=== PATIENT | male | born 1965 | race Caucasian/White ===

== ENCOUNTER 2022-08-25 22:24 | Emergency (ER) | payer BC, SELFPAY ==
--- NOTE | ~2022-08-25 | XR_ITS ---
AP view of the pelvis and AP and lateral views of the left hip Clinical history: Pain Findings: No acute fracture or dislocation is seen. There is some flattening and chronic remodeling o f the left femoral head with suggestion of mildly shallow left acetabulum. Right hip joint space is u nremarkable bilateral SI joints are intact. Soft tissues are unremarkable. Impression: No acute reality evident. Suggestion of element of chronic left hip dysplasia, with chronic remodeling and flattening of the le ft femoral head and mildly shallow left acetabulum. Reviewed, dictated and finalized at location [facility]. GER [facility]UM[facility] Impression: No acute reality evident. Suggestion of element of chronic left hip dysplasia, with chronic remodeling an d flattening of the left femoral head and mildly shallow left acetabulum.
[2022-08-25 22:26] VITALS: BP 136/88; PULSE 70; RESP 16; TEMP 36.8; O2SAT 99
--- NOTE | 2022-08-26 01:09 | PC.NURSE ---
Pt came up to intake desk and stated he can not wait in ED lobby chair anymore and asked for results of imaging. This nurse stated she could not advise on the imaging and stated pt would have to wait for ED provider to advise. Pt stated he couldnt wait any longer.
== END 2022-08-26 01:09 | disposition left against medical advice (07) ==
PROVIDERS: Emergency Provider Emergency Medicine; PCP Family Medicine
DX: M25.552 Pain in left hip (principal); Z53.21 Procedure and treatment not carried out due to patient leaving prior to being seen by health care provider
CPT/HCPCS: 73502; 99199

== ENCOUNTER → 2022-09-08 13:28 | Outpatient (CLI) | payer BC, SELFPAY ==
--- NOTE | ~2022-09-08 | MR_ITS ---
MRI of the lumbar spine Clinical History: Back pain Technique: Axial T2-weighted images, and sagittal T1-weighted, T2-weighted, and T2 fat-sat images wer e acquired. Findings: There is no fracture or subluxation of the lumbar spine. Vertebral bodies maintain normal h eight and alignment. No bone marrow signal abnormality seen. At L1-L2, there is no disc bulge or herniation. No spinal canal stenosis or neural foraminal narrowin g. At L2-L3 and L3-L4, there is no disc bulge or herniation. Minimal facet joint degenerative changes ar e present. No spinal canal stenosis or neural foraminal narrowing at these levels. At L4-L5, there is minimal disc bulge with facet arthropathy present. No spinal canal stenosis or jose elias ral foraminal narrowing. At L5-S1, there is facet arthropathy. No disc bulge or herniation evident. No spinal canal stenosis o r neural foraminal narrowing. Paravertebral soft tissues are unremarkable. Impression: Minimal degenerative changes, as detailed above. Reviewed, dictated and finalized at location M. ETCAR MOTORMAN Impression: Minimal degenerative changes, as detailed above.
--- NOTE | ~2022-09-08 | MR_ITS ---
MRI of the left hip Clinical history: Pain Technique: Coronal T1-weighted, T2-weighted, and proton-density fat-sat images, and axial T1-weighted and proton-density fat-sat images were acquired through the pelvis. Coronal T2-weighted images and c oronal, axial, and sagittal proton-density fat-sat images were acquired through the left hip. Findings: There is no acute fracture, avascular necrosis, or transient osteoporosis of either hip. Th ere is marked flattening and remodeling of the left femoral head with mild marrow edema in the femora l head. There is prominent subchondral cystic change at the superolateral left acetabulum. There is d iffuse high-grade chondromalacia throughout the left hip joint with moderate to large left hip joint effusion present. Suggestion of mild dysplasia of the superior left acetabulum. Right hip joint is morphologically unremarkable. No right hip joint effusion present. Bilateral SI janette ints are unremarkable. No other bone marrow signal abnormality seen in the visualized pelvis or proxi mal femora. There is probable extensive degenerative labral tearing of the left acetabular labrum, especially at the anterior superior portion. Visualized musculature about the pelvis and left hip is unremarkable. No muscle atrophy or edema evid ent. Visualized tendons are intact. No soft tissue mass or other fluid collection identified. IMPRESSION: Prominent flattening and chronic remodeling of the left femoral head with mild shallowness of the lef t acetabulum. Findings suggest sequelae of chronic left hip dysplasia with secondary advanced osteoar thritic change. Moderate to large left hip joint effusion, likely reactive/secondary to degenerative change. No imagi ng evidence for infectious process, however if this is of clinical concern, then joint aspiration wou ld be indicated. Extensive left acetabular labral tearing, likely degenerative in nature. Reviewed, dictated and finalized at location M. UNT REPRESENTATIVE IMPRESSION: Prominent flattening and chronic remodeling of the left femoral head with mild shallowness of the left acetabulum. Findings suggest sequelae of chronic left h ip dysplasia with secondary advanced osteoarthritic change. Moderate to large left hip joint effusion, likely reactive/secondary to degener ative change. No imaging evidence for infectious process, however if this is of clinical concern, then joint aspiration would be indicated. Extensive left acetabular labral tearing, likely degenerative in nature.
== END ==
PROVIDERS: PCP Family Medicine
DX: M54.50 Low back pain, unspecified (principal); M25.552 Pain in left hip; M25.452 Effusion, left hip
CPT/HCPCS: 72148; 73721

== ENCOUNTER 2022-11-07 11:25 | Outpatient (CLI) | payer BC, SELFPAY ==
[2022-11-07 19:21] LABS: Basophils Absolute Auto 0.1 K/mm3 (0.0-0.1); Basophils Percent Auto 0.9 % (0.2-1.2); Eosinophils Absolute Auto 0.1 K/mm3 (0-0.3); Eosinophils Percent Auto 1.2 % (0-4.4); Hemoglobin 16.3 g/dL (14.0-18.0); Immature Granulocyte Absolute 0.01 K/mm3 (0.00-0.031); Immature Granulocyte Percent A 0.1 % (0-0.5); Lymphocytes Absolute Auto 1.32 K/mm3 (0.9-3.2); Lymphocytes Percent Auto 17.8 % (18.3-44.2); Mean Corpuscular Hemoglobin 32.3 pg (26-34); Mean Platelet Volume 9.3 fl (7.4-10.4); Monocytes Absolute Auto 0.7 K/mm3 (0.1-0.6); Neutrophils Absolute Auto 5.3 K/mm3 (1.3-6.7); Platelet Count Result 294 k/mm3 (150-375); Red Blood Count 5.05 M/mm3 (4.6-6.20); Red Cell Distribution Width 12.5 % (11.5-14.5); White Blood Count 7.4 K/mm3 (4.5-10.0)
[2022-11-07 19:49] LABS: Alanine Aminotransferase 29 U/L (6-50); Albumin Level 4.5 g/dL (3.5-5.1); Alkaline Phosphatase 61 U/L (38-126); Anion Gap 7 mmol/L (8-16); Aspartate Amino Transferase 30 U/L (17-59); Bilirubin,Total 0.6 mg/dL (0.2-1.3); Blood Urea Nitrogen 18 mg/dL (9-20); Calcium 9.6 mg/dL (8.4-10.2); Carbon Dioxide 27 mmol/L (22-30); Chloride 103 mmol/L (98-107); Estimated Glomerular Filt Rate > 60; Glucose 80 mg/dL (65-110); Potassium 4.5 mmol/L (3.4-5.0); Sodium 137 mmol/L (137-145)
== END 2022-11-07 11:26 | disposition home or self-care (01) ==
LOC: ANHGOSHLAB 11:26
PROVIDERS: PCP Family Medicine; Visit Provider Family Medicine
DX: R53.83 Other fatigue (principal); Z13.228 Encounter for screening for other metabolic disorders
CPT/HCPCS: 36415; 80053; 85025

== ENCOUNTER 2024-07-11 13:47 | Emergency (ER) | payer BC, SELFPAY ==
[2024-07-11 13:52] VITALS: BP 127/71; PULSE 71; RESP 16; TEMP 36.4; O2SAT 99
--- NOTE | 2024-07-11 14:31 | ED_ITS ---
HPI - URI/Sore Throat General Chief Complaint: Upper Respiratory Infection Stated Complaint: Sinus Time Seen by Provider: 07/11/24 14:31 Source: patient, RN notes reviewed and old records reviewed Mode of arrival: ambulatory Limitations: no limitations History of Present Illness HPI Narrative: 59-year-old male presents to the [facility] with complaints of cough, sinus congestion, tickle in his throat since early May. States that he took 2 leftover Augmentin tablets. Denies any fevers. Has taken [id number] products. Has a history of chronic sinus congestion, sinusitis. Denies any chest pain or shortness of breath. Related Data Home Medications Medication Instructions Recorded Confirmed finasteride 5 mg tablet 5 mg PO DAILY 01/25/20 07/11/24 rosuvastatin 10 mg tablet (Crestor) 10 mg PO DAILY 01/25/20 07/11/24 coenzyme Q10 100 mg tablet 100 mg PO DAILY 02/20/20 07/11/24 omega-3 fatty acids 1,000 mg 1,000 mg PO DAILY 02/20/20 07/11/24 capsule (Fish Oil Concentrate) ezetimibe 10 mg tablet (Zetia) 10 mg PO DAILY 11/18/21 07/11/24 Allergies Allergy/AdvReac Type Severity Reaction Status Date / Time No Known Allergies Allergy Verified 05/12/24 15:36 Review of Systems Review of Systems: All systems reviewed & are unremarkable except as noted in HPI and below Constitutional: Constitutional: Reports no additional constitutional complaints ENT: Reports as per HPI Cardiovascular: Cardiovascular: Reports no additional cardiovascular complaints, Denies chest pain and Denies dyspnea Respiratory: Respiratory: Reports no additional respiratory complaints, Denies chest congestion, Denies cough and Denies dyspnea Gastrointestinal: Gastrointestinal: Reports no additional gastrointestinal complaints, Denies abdominal pain, Denies nausea and Denies vomiting Musculoskeletal: Musculoskeletal: Reports no additional musculoskeletal complaints Integumentary/Breasts: Skin/Breast: Reports system reviewed and no additional complaints, except as docu PMFSH Past Medical History Medical History History of torn meniscus of right knee Surgical History Surgical History H/O hernia repair x2 H/O shoulder surgery x5 torn tricept on each arm rotator cuff Hx of tonsillectomy Family History Family History Father Family history of cardiovascular disease Malignant neoplasm of prostate Family history of dementia Other Family history of kidney disease Hypertension Social History Social History Social History: caffeine 2 cups coffee daily Smoking status: Never smoker Alcohol intake: current Drinks per week: 12 Substance use: never Substance use type: does not use Do You Feel Safe in your Home?: Yes Lack of Transportation: No Lack of Food: Never True Current Housing: I Have Housing Concerned About Future Housing: No Difficulty Paying Gas/Electric Bills: No Difficulty Paying for Meds: No Currently Unemployed: YES Education: High School Diploma/GED Difficulty w/ Childcare or Family Care: No Occupation/Education: unemployed Gender identity (if verbalized by the patient): Male Agree to blood products: Yes Comments At the time of my signature, I reviewed and agree with the nursing past medical, surgical, social, and family history. There is no relevant family history pertinent to the patient complaint. Exam Const: General: cooperative, healthy appearing, comfortable, no acute distress, well developed, alert and well nourished Nutritional Appearance: well nourished Orientation/consciousness: patient oriented x3 Limitations: no limitations HENMT: Head: normal to inspection Ears: hearing grossly normal bilaterally, external ears normal, TM's normal bilaterally, EAC's normal, mastoids normal and no periauricular adenopathy Face/Nose/Sinus: Normal external nose present, Normal nares present, normal facial exam and face symmetric Face and sinus: normal facial exam, sinuses nontender and face symmetric Mouth: Yes Normal oral and palatal mucosa present, Yes lip normal and Yes tongue normal Throat: posterior oropharynx normal, uvula midline and no uvular edema Eyes: General: appearance normal, both eyes and all related structures Alignment and Position: alignment normal Periorbital: periorbital findings normal Neck: Neck: normal visual inspection, full ROM, no lymphadenopathy and no meningeal signs Chest: Chest palpation & inspection: normal inspection of the chest Resp: Effort & Inspection: normal respiratory effort and able to speak in complete sentences Auscultation: clear to auscultation bilaterally, no crackles, no rales, no rhonchi and no wheezes Cardio: Rate: regular rate Skin: General skin exam: normal color and no rashes or lesions noted Lesions: no lesions Rashes: no rashes Wounds: no wounds Neuro: General: patient oriented x3, gait normal, tone normal, moves all extremities and no meningeal signs Cognition (Neuro): normal cognition Speech: normal speech Gait exam (Neuro): Normal gait present Extrem: General: normal to inspection, full ROM, capillary refill normal and normal gait Psych: Appearance: grossly normal and well kempt Mental Status: mental status grossly normal Speech and movement: Normal speech and movement present and Clear speech present Affect: normal affect Attitude: cooperative Course Course Level of Care: Express Care Visit Vital Signs Vital signs: Vital Signs Temperature 97.5 F L 07/11/24 13:52 Pulse Rate 71 07/11/24 13:52 Respiratory Rate 16 07/11/24 13:52 Blood Pressure 127/71 07/11/24 13:52 Pulse Oximetry 99 07/11/24 13:52 Oxygen Delivery Room Air 07/11/24 13:52 Temperature 97.5 F L 07/11/24 13:52 Pulse Rate 71 07/11/24 13:52 Respiratory Rate 16 07/11/24 13:52 Blood Pressure 127/71 07/11/24 13:52 Pulse Oximetry 99 07/11/24 13:52 Oxygen Delivery Room Air 07/11/24 13:52 Reviewed MDM - URI/Sore Throat MDM Narrative Medical decision making narrative: Patient sitting comfortably in exam room. Nontoxic, vitals stable. Patient in no acute distress Patient with 4-5 week history of sinus congestion, intermittently as well as increased cough, worse at night Patient's exam consistent with sinusitis, bronchitis, will attempt to treat with [id number]-ppksuld products as well as attempting doxycycline. Explained to patient that sometimes these cough can last for several weeks even a couple of months. Discharge instructions reviewed with patient, as well as provided in writing per nursing staff. The instructions also include specific and strict return/GO TO THE ER as well as f/u information. All questions have been answered, and the patient deny any further questions with discharge and discharge plan. Some parts of this dictation were generated by voice recognition software and may contain typographical and/or grammatical inaccuracies. Differential Diagnosis Differential diagnosis: Likely upper respiratory infection, otitis media, sinusitis, viral infection and bronchitis Critical Care Time Critical Care Time Critical Care Time: No Discharge Plan Discharge Clinical Impression: Sinusitis, Bronchitis Patient Disposition: Home, Self-Care Condition: Stable Instructions: Antibiotic Form, Sinusitis (ED), Acute Bronchitis (ED) Additional Instructions: -Alternate Tylenol and Motrin per package directions for fever or pain. -Antihistamine medication such as Benadryl at night and Zyrtec/Claritin/Divya during the day can help improve symptoms. -doing daily nasal irrigations can help relieve pressure your sinuses. Things like a Neti pot -Use Flonase daily to help reduce the inflammation and dry up your sinuses. -You can also use Mucinex. Be sure to drink plenty of water with this medication at least 8 ounces with every dose and it is important to drink 8 to 10 glasses of water per day. Water is a natural decongestant -Eat and drink things that are easy to swallow, like tea or soup, or popsicles. -Oral rinses such as: Salt water gargles and/or may use topical anesthetic (eg. Chloraseptic spray) or lozenges to relieve dryness or throat pain). -Frequent hand washing or hand char filter operator helper is one of the best ways to prevent spread of infection. -Using a vaporizer or humidifier at night will also help thin secretions and help with coughing up phlegm. -Follow up with primary care provider in 3-5 days if condition is not improving - For new or worsening symptoms go directly to the nearest ER Patient Language: Tajik Prescriptions: New doxycycline monohydrate 100 mg tablet 100 mg PO BID Qty: 14 0RF No Action sildenafil 50 mg tablet 50 mg PO DAILY PRN (Reason: sexual activity) Qty: 12 3RF Rx Instructions: administer 30 minutes to 4 hours before activity coenzyme Q10 100 mg tablet 100 mg PO DAILY omega-3 fatty acids [Fish Oil Concentrate] 1,000 mg capsule 1,000 mg PO DAILY ezetimibe [Zetia] 10 mg tablet 10 mg PO DAILY fluticasone propionate [Allergy Relief (fluticasone)] 50 mcg/actuation spray,suspension 1 spray intranasal DAILY Qty: 16 1RF Rx Instructions: administer into each nostril meloxicam 15 mg tablet 15 mg PO DAILY Qty: 20 0RF Rx Instructions: no ibuprofen/aleve while taking this rosuvastatin [Crestor] 10 mg tablet 10 mg PO DAILY finasteride 5 mg tablet 5 mg PO DAILY amlodipine 2.5 mg tablet 2.5 mg PO DAILY Qty: 90 1RF Follow-up/Referrals: Khurram Díaz DO [Primary Care Provider] - 2 Weeks ([facility] care follow up ) Time of Disposition: 14:57
== END 2024-07-11 15:05 | disposition home or self-care (01) ==
PROVIDERS: Emergency Provider Nurse Practitioner; PCP Family Medicine
DX: J32.9 Chronic sinusitis, unspecified (principal); J40 Bronchitis, not specified as acute or chronic
CPT/HCPCS: 99213; G0463